=== PATIENT | female | born 1990 | race Caucasian/White ===

== ENCOUNTER 2020-11-30 22:46 | Inpatient (IN) | payer MEDICAID ==
[~2020-11-30] VITALS: Ht 162.6 cm; Wt 92.5 kg
[~2020-11-30 22:46] MED LIST: ASPI-1497 PO; CLOP75TA33 PO; GUAI600T44 MT; LIP40 PO; LOSA25TA26 PO; METF-414 PO; METO-539 PO; NITR0.4T49 SL; OXYC1TAB21 PO; TRAM50TA3 PO
[2020-11-30 23:40] LABS: CHLORIDE 98 mEq/L (98-107)
[2020-11-30 23:45] LABS: ETHANOL BLOOD < 10 mg/dL
[2020-11-30 23:47] LABS: BASOPHILS % 0.6 % (0.0-2.0); EOSINOPHILS % 2.4 % (0.0-5.0); HEMATOCRIT. 38.3 % (36.0-48.0); HEMOGLOBIN. 12.7 g/dL (12.0-16.0); LYMPHOCYTES % 32.3 % (20.0-50.0); MEAN CORPUSCULAR VOLUME 81.4 fL (81.0-99.0); MEAN PLATELET VOLUME 7.7 fl (7.4-10.4); MONOCYTES % 6.7 % (2.0-8.0); PLATELET 326 x1000/uL (130-400); RED BLOOD CELL COUNT 4.71 mill/uL (4.2-5.4)
[2020-12-01 00:19] LABS: HCG SCREEN NEGATIVE
[2020-12-01] MEDS: NITROGLYCERIN 0.4MG TABLET SL SL PRN ×3 (00:42→06:23)
[2020-12-01] MEDS ORDERED: INSULIN REGULAR (HUMULIN R) 300UNITS/3ML VIAL SUBCUT ONE (00:45)
[2020-12-01 00:47] LABS: *AMPHETAMINES SCREEN URINE NEGATIVE (NEGATIVE); *BARBITURATES SCREEN URINE NEGATIVE (NEGATIVE); *BENZODIAZEPINES SCREEN URINE NEGATIVE (NEGATIVE); *COCAINE SCREEN URINE NEGATIVE (NEGATIVE); METHADONE URINE SCREEN NEGATIVE (NEGATIVE); OPIATES URINE SCREEN NEGATIVE (NEGATIVE)
[2020-12-01 00:48] LABS: CANNABINOID URINE SCREEN NEGATIVE (NEGATIVE); PHENCYCLIDINE URINE SCREEN NEGATIVE (NEGATIVE)
[2020-12-01 09:40] VITALS: BP 168/108
[2020-12-01] MEDS ORDERED: CLOPIDOGREL 75MG TABLET PO NR (09:45)
[2020-12-01] MEDS ORDERED: AMLODIPINE 5MG TABLET PO NR (09:45)
[2020-12-01] MEDS ORDERED: METOPROLOL TARTRATE 25MG TABLET PO NR (09:45)
[2020-12-01 09:47] VITALS: BP 168/108
[2020-12-01] MEDS: NITROGLYCERIN OINT 1GM/INCH UDPKT TD SCH ×3 (10:46→21:51)
[2020-12-01] MEDS ORDERED: AMLO10TA80 PO (11:14)
[2020-12-01] MEDS ORDERED: ISOS20TA57 PO (11:14)
[2020-12-01] MEDS: ASPIRIN 81MG EC TABLET PO SCH (11:24)
[2020-12-01 12:00] VITALS: BP 163/95
[2020-12-01] MEDS ORDERED: DEXTROSE 50% WATER 50ML SYRINGE IV PRN (13:45)
[2020-12-01] MEDS ORDERED: INSULIN GLARGINE UD 100 UNITS/ML SYR SUBCUT NR (15:00)
[2020-12-01 16:00] VITALS: BP 134/79
[2020-12-01] MEDS: BLOOD SUGAR DIAGNOSTIC STRIP TEST SCH ×2 (17:10→21:00)
[2020-12-01] MEDS: LOSARTAN POTASSIUM 100 MG TABLET PO SCH (18:03)
[2020-12-01] MEDS: INSULIN LISPRO 100 UNITS/ML SUBCUT SCH ×2 (18:31→22:47)
[2020-12-01 20:00] VITALS: BP 123/67
[2020-12-01] MEDS ORDERED: ACETAMINOPHEN 325MG TABLET PO PRN (20:15)
[2020-12-01] MEDS ORDERED: ATORVASTATIN CALCIUM 40MG TABLET PO SCH (21:00)
[2020-12-01] MEDS: METOPROLOL TARTRATE 25MG TABLET PO SCH (21:50)
[2020-12-01] MEDS ORDERED: INSULIN GLARGINE UD 100 UNITS/ML SYR SUBCUT SCH (22:00)
[2020-12-02] VITALS: BP 118/60
[2020-12-02 04:00] VITALS: BP 109/51
[2020-12-02] MEDS: NITROGLYCERIN OINT 1GM/INCH UDPKT TD SCH ×2 (06:00→14:08)
[2020-12-02] MEDS: BLOOD SUGAR DIAGNOSTIC STRIP TEST SCH ×3 (06:33→17:03)
[2020-12-02] MEDS: INSULIN LISPRO 100 UNITS/ML SUBCUT SCH ×3 (06:42→17:03)
[2020-12-02 07:09] LABS: CHLORIDE 104 mEq/L (98-107)
[2020-12-02 07:12] LABS: BASOPHILS % 0.6 % (0.0-2.0); EOSINOPHILS % 2.7 % (0.0-5.0); HEMATOCRIT. 36.4 % (36.0-48.0); HEMOGLOBIN. 12.3 g/dL (12.0-16.0); LYMPHOCYTES % 29.1 % (20.0-50.0); MEAN CORPUSCULAR HEMOGLOBIN 27.2 pg (28.0-32.0); MEAN CORPUSCULAR VOLUME 80.4 fL (81.0-99.0); MEAN PLATELET VOLUME 7.4 fl (7.4-10.4); MONOCYTES % 7.1 % (2.0-8.0); NEUTROPHILS % 60.5 % (40.0-76.0); PLATELET 353 x1000/uL (130-400); RED BLOOD CELL COUNT 4.53 mill/uL (4.2-5.4); RED CELL DISTRIBUTION WIDTH 14.3 % (11.6-14.6)
[2020-12-02 07:19] LABS: LDL CHOLESTEROL 86 mg/dL (5-100)
[2020-12-02 07:20] LABS: HDL CHOLESTEROL 37 mg/dL (40-59)
[2020-12-02 08:00] VITALS: BP 101/66
[2020-12-02] MEDS: LOSARTAN POTASSIUM 100 MG TABLET PO SCH (09:00)
[2020-12-02] MEDS ORDERED: CLOPIDOGREL 75MG TABLET PO SCH (09:00)
[2020-12-02] MEDS ORDERED: AMLODIPINE 5MG TABLET PO SCH (09:00)
[2020-12-02] MEDS: METOPROLOL TARTRATE 25MG TABLET PO SCH (09:00)
[2020-12-02] MEDS: ASPIRIN 81MG EC TABLET PO SCH (09:28)
[2020-12-02 12:00] VITALS: BP 144/99
[2020-12-02] MEDS ORDERED: LANTUSUD SUBCUT (13:02)
[2020-12-02] MEDS ORDERED: ASPI-1406 PO (13:02)
[2020-12-02] MEDS ORDERED: LIP40 PO (13:02)
[2020-12-02] MEDS ORDERED: CLOP75TA15 PO (13:02)
[2020-12-02] MEDS ORDERED: METO25TA6 PO (13:02)
[2020-12-02] MEDS ORDERED: AMLO5TAB88 PO (13:02)
[2020-12-02 13:52] VITALS: BP 144/99
[2020-12-02 16:00] VITALS: BP 140/90
[2020-12-02] MEDS ORDERED: INSULIN GLARGINE UD 100 UNITS/ML SYR SUBCUT SCH (22:00)
== END 2020-12-02 16:30 | disposition home or self-care (01) | DRG 198 ==
LOC: ER 22:46 → EDBEDREQ 12-01 01:59 → 8WST 12-01 04:29 → EDBEDREQTM 12-01 04:44 → EDBEDREQ 12-01 04:44 → ENRESERV 12-01 07:36
PROVIDERS: ADMIT Internal Medicine; ATTEND Internal Medicine
DX: I25.110 Atherosclerotic heart disease of native coronary artery with unstable angina pectoris (principal); I11.0 Hypertensive heart disease with heart failure; E11.65 Type 2 diabetes mellitus with hyperglycemia; I50.9 Heart failure, unspecified; E87.1 Hypo-osmolality and hyponatremia; I16.0 Hypertensive urgency; E66.9 Obesity, unspecified; E78.5 Hyperlipidemia, unspecified; Z20.822 Contact with and (suspected) exposure to COVID-19; Z79.84 Long term (current) use of oral hypoglycemic drugs; Z82.49 Family history of ischemic heart disease and other diseases of the circulatory system; I25.2 Old myocardial infarction; Z95.1 Presence of aortocoronary bypass graft; Z95.5 Presence of coronary angioplasty implant and graft; Z88.5 Allergy status to narcotic agent; Z71.3 Dietary counseling and surveillance; Z68.35 Body mass index [BMI] 35.0-35.9, adult
CPT/HCPCS: 36415; 71045; 80048; 80053; 80061; 80305; 80320; 82962; 83036; 83880; 84484; 84703; 85025; 85379; 93005; 93306; 93970; 99285; C1893; J1815; G0480

== ENCOUNTER 2021-06-01 11:03 | Emergency (ER) | payer MEDICAID ==
[~2021-06-01] VITALS: Ht 162.6 cm; Wt 86.0 kg
[~2021-06-01 11:03] MED LIST changes: +AMLO5TAB88 PO; -GUAI600T44 MT; +LISI40TA13 MT; -LOSA25TA26 PO; -NITR0.4T49 SL; -OXYC1TAB21 PO; -TRAM50TA3 PO
[2021-06-01 11:10] VITALS: BP 151/104
[2021-06-01] MEDS ORDERED: MAGNESIUM/ALUMINUM HYDROXIDE/SIMETHICONE 30ML UDC PO STA (12:13)
[2021-06-01] MEDS ORDERED: VISCOUS LIDOCAINE 2% 15 ML UDC PO STA (12:13)
[2021-06-01] MEDS ORDERED: FAMOTIDINE 20MG TABLET PO ONE (12:15)
[2021-06-01 12:35] LABS: CLARITY URINE CLOUDY (CLEAR); COLOR URINE YELLOW (YELLOW); KETONES URINE TRACE (NEGATIVE); LEUKOCYTE ESTERASE URINE NEGATIVE (NEGATIVE); NITRITE URINE NEGATIVE (NEGATIVE); OCCULT BLOOD URINE TRACE (NEGATIVE); PROTEIN URINE NEGATIVE (NEGATIVE); SPECIFIC GRAVITY URINE 1.045 (1.005-1.030); UROBILINOGEN URINE 0.2 E.U./dL (0.2-1.0)
[2021-06-01 12:41] LABS: BASOPHILS % 0.5 % (0.0-2.0); EOSINOPHILS % 0.8 % (0.0-5.0); HEMATOCRIT. 38.8 % (36.0-48.0); LYMPHOCYTES % 21.6 % (20.0-50.0); MEAN CORPUSCULAR HEMOGLOBIN 27.1 pg (28.0-32.0); MEAN CORPUSCULAR VOLUME 80.6 fL (81.0-99.0); MEAN PLATELET VOLUME 7.5 fl (7.4-10.4); MONOCYTES % 4.6 % (2.0-8.0); NEUTROPHILS % 72.5 % (40.0-76.0); PLATELET 352 x1000/uL (130-400); RED BLOOD CELL COUNT 4.81 mill/uL (4.2-5.4)
[2021-06-01 13:09] LABS: HCG SCREEN NEGATIVE
[2021-06-01 13:26] LABS: PROTHROMBIN TIME 10.7 sec (9.6-11.0)
[2021-06-01 13:34] LABS: CHLORIDE 100 mEq/L (98-107)
[2021-06-01] MEDS ORDERED: CEFTRIAXONE SODIUM 1 G/VIAL IM ONE (13:45)
[2021-06-01] MEDS ORDERED: INSULIN REGULAR (HUMULIN R) 300UNITS/3ML VIAL SUBCUT ONE (13:45)
[2021-06-01] MEDS ORDERED: CEFTRIAXONE 1 G PREMIX 50 ML IV ONE (14:00)
[2021-06-01] MEDS ORDERED: SODIUM CHLORIDE 0.9% 1,000 ML IV ONE (14:00)
[2021-06-01] MEDS ORDERED: CEPH500C2 MT (15:23)
[2021-06-01] MEDS ORDERED: METF-874 MT (15:31)
== END 2021-06-01 16:22 | disposition home or self-care (01) ==
LOC: ER 11:03
DX: E11.65 Type 2 diabetes mellitus with hyperglycemia (principal); N39.0 Urinary tract infection, site not specified; R07.89 Other chest pain; I11.9 Hypertensive heart disease without heart failure; I25.10 Atherosclerotic heart disease of native coronary artery without angina pectoris; Z79.82 Long term (current) use of aspirin; Z95.1 Presence of aortocoronary bypass graft; Z91.14 Patient's other noncompliance with medication regimen; Z79.84 Long term (current) use of oral hypoglycemic drugs; Z88.5 Allergy status to narcotic agent
CPT/HCPCS: 36415; 71045; 76705; 80053; 81003; 81025; 83690; 84484; 84703; 85025; 85610; 93005; 96365; 96366; 96372; 99285; J1815; J7030